=== PATIENT | male | born 1980 | race Two or more races ===

== ENCOUNTER 2019-02-02 08:30 | Emergency (ER) | payer SELFPAY ==
[~2019-02-02] VITALS: Ht 170.2 cm; Wt 90.7 kg
[2019-02-02 08:35] VITALS: BP 147/88
== END 2019-02-02 09:12 | disposition home or self-care (01) ==
LOC: ER 08:35
DX: S39.012A Strain of muscle, fascia and tendon of lower back, initial encounter (principal); X58.XXXA Exposure to other specified factors, initial encounter; Y93.89 Activity, other specified; Y99.8 Other external cause status; Y92.89 Other specified places as the place of occurrence of the external cause
CPT/HCPCS: 72100